=== PATIENT | male | born 2000 | race Two or more races ===

== ENCOUNTER 2022-03-31 14:58 | Emergency (ER) | payer OTHER ==
[~2022-03-31] VITALS: Ht 177.8 cm; Wt 81.6 kg
[2022-03-31] MEDS ORDERED: TUSICOF CAPLET1 EACH PO (18:58)
== END 2022-03-31 19:26 | disposition home or self-care (01) ==
LOC: ER 14:58 → EMR PED 15:31 → ER 15:31 → EMR PED 19:26
DX: J06.9 Acute upper respiratory infection, unspecified (principal); Z20.822 Contact with and (suspected) exposure to COVID-19